=== PATIENT | female | born 1960 | race African-American/Black ===

== ENCOUNTER → 2024-04-26 14:24 | Outpatient (CLI) | payer OTHER, SELFPAY ==
--- NOTE | 2024-05-09 13:52 | DI.NM.S_ITS ---
DATE OF SERVICE: 04/26/2024 NUCLEAR CARDIOLOGY MYOCARDIAL PERFUSION STUDY PROCEDURE: Exercise treadmill stress and rest myocardial perfusion imaging with gating to assess ejection fraction and regional wall motion. ORDERING PROVIDER: Rsosy Vargas PA-C INDICATIONS: The patient is a 63-year-old female with recurrent syncopal episodes. CARDIAC STRESS: The patient was able to exercise for a total of 9 minutes 1 second on a standard Jarod protocol, suggesting excellent exercise capacity, with an SULEIMAN of -37%, achieving 8.9 METS. She had a normal heart rate and blood pressure response to exercise, achieving a maximum heart rate of 158 bpm (101% of her predicted maximum). She had no chest discomfort or anginal symptoms beyond moderate exertional dyspnea. Her resting ECG shows sinus rhythm with fairly normal ST segments. There are no significant ST-segment shifts or arrhythmias with stress. At 7 minutes of exercise, at a heart rate of 152 bpm, 24.8 millicuries of technetium-99m Myoview was injected and she was imaged 15 minutes later using a gated SPECT acquisition protocol. Four days prior while at rest, she had been injected with 27.5 millicuries of technetium-99m Myoview and was scanned 15 minutes later, again using a gated SPECT acquisition protocol. FINDINGS: 1. Raw data: There is fairly good myocardial tracer uptake with only subtle breast shadows noted. The lung/heart ratio is normal at 0.17 with a normal TID ratio 1.00. 2. Quantitated gated SPECT: Post-stress ejection fraction is 76% without any focal wall motion abnormality. Resting ejection fraction is 71% with a normal end-diastolic volume of 65 mL. 3. Myocardial perfusion imaging: Post-stress supine images show a normal myocardial perfusion pattern, supported by normal perfusion imaging in the prone position. The resting images show an identical perfusion pattern without any clear areas of improvement, although some subdiaphragmatic activity overflows into the inferior wall. IMPRESSION: 1. Normal exercise treadmill myocardial perfusion study for ischemia. 2. No evidence of myocardial ischemia or previous myocardial\infarction. 3. Normal left ventricular size and systolic function without focal abnormality. 4. Excellent exercise capacity without angina, ECG evidence of ischemia, or any arrhythmias. She had a normal hemodynamic response to exercise. Randee Meadows - JOSE ENRIQUE/trey/GENNARO doc#: [id number]/job#: [id number] dd: 04/30/2024 16:26:00 dt: 04/30/2024 16:47:00 DICTATING MD/COPIES TO: Leif Reed MD; Rossy Vargas PA-C COPIES MNE: SAI;
== END ==
PROVIDERS: PCP Physician Assistant Medical; Referring Provider Physician Assistant Medical; Visit Provider Physician Assistant Medical
DX: R55 Syncope and collapse; Z13.0 Encounter for screening for diseases of the blood and blood-forming organs and certain disorders involving the immune mechanism; Z13.1 Encounter for screening for diabetes mellitus; Z13.29 Encounter for screening for other suspected endocrine disorder; Z13.6 Encounter for screening for cardiovascular disorders; M54.9 Dorsalgia, unspecified
CPT/HCPCS: 77080; 78452; 80053; 80061; 84443; 85027; 93017; A9502

== ENCOUNTER → 2024-04-26 14:28 | Outpatient (CLI) | payer OTHER, SELFPAY ==
[2024-04-26 16:56] LABS: Hematocrit 38.7 % (36-46); Hemoglobin 12.7 g/dL (12.0-16.0); Mean Corpuscular HGB Conc 32.7 % (30-36); Mean Corpuscular Hemoglobin 28.2 PG (26-34); Mean Corpuscular Volume 86.3 fL (80-100); Platelet Count 263 X10^3/uL (150-400); Red Blood Cell Count 4.49 X10^6/uL (4.0-5.2); Red Cell Distribution Width 14.1 % (11.6-14.8); White Blood Cell Count 7.4 X10^3/uL (4.5-11.0)
[2024-04-26 17:33] LABS: Alanine Aminotransferase 19 IU/L (<35); Albumin 3.9 g/dL (3.5-5.0); Albumin Globulin Ratio 1.2 (1.0-2.8); Alkaline Phosphatase 62 U/L (38-126); Aspartate Aminotransferase 30 IU/L (14-36); BUN Creatinine Ratio 16.3 (6-22); Bilirubin Total 0.5 mg/dL (0.2-1.3); Blood Urea Nitrogen 14 mg/dL (7-17); Calcium 9.2 mg/dL (8.4-10.2); Carbon Dioxide 28 mmol/L (22-32); Chloride 108 mmol/L (98-107); Cholesterol 197 mg/dL (140-199); Estimated Glomerular Filt Rate > 60 mL/min (>60); Globulin 3.2 g/dL (1.7-4.1); Glucose 85 mg/dL (80-110); HDL Cholesterol 60 mg/dL (40-60); HEMOLYSIS < 15 (0-50); LDL Cholesterol Calculated 116 mg/dL (<100); Sodium 137 mmol/L (137-145); Total Protein 7.1 g/dL (6.3-8.2); Triglycerides 107 mg/dL (35-150)
[2024-04-26 18:04] LABS: TSH w/ Reflex to FT4 4.11 uIU/mL (0.47-4.68)
== END ==
PROVIDERS: PCP Physician Assistant Medical; Referring Provider Physician Assistant Medical; Visit Provider Physician Assistant Medical
DX: Z13.0 Encounter for screening for diseases of the blood and blood-forming organs and certain disorders involving the immune mechanism (principal); Z13.1 Encounter for screening for diabetes mellitus; Z13.29 Encounter for screening for other suspected endocrine disorder; Z13.6 Encounter for screening for cardiovascular disorders; M54.9 Dorsalgia, unspecified
CPT/HCPCS: 80053; 80061; 84443; 85027

== ENCOUNTER → 2024-04-30 12:59 | Outpatient (CLI) | payer OTHER, SELFPAY ==
--- NOTE | 2024-04-30 12:15 | DI.RAD.S_ITS ---
PROCEDURE: XR DEXA AXIAL SKELETON INDICATIONS: screen COMPARISON: None. FINDINGS: Lumbar Spine: Bone mineral density 1.265 g/cm2, T score 2.0. Left Hip: Bone mineral density 1.184 g/cm2, T score 2.0. Left Femoral Neck: Bone mineral density 1.103 g/cm2, T score 2.3 Right Hip: Bone mineral density 1.123 g/cm2, T score 1.5. Right Femoral Neck: Bone mineral density 1.016 g/cm2, T score 1.5. Fracture Risk Calculation (when applicable): 10-year fracture risk of a major osteoporotic fracture 5.4 percent and of a hip fracture 0.1 percent. (T score greater or equal to -1.0 to: NORMAL) (T score from -1.1 to -2.4: OSTEOPENIA) (T score less than or equal to -2.5: OSTEOPOROSIS) IMPRESSION: Normal bone density of the lumbar spine, hips, and femoral necks. Follow-up guidelines as follows: Osteoporosis: Consider a repeat DEXA and Vertebral Fracture Assessment (VFA) exam in 2 years or sooner if medically necessary, to reassess this patient's status. Osteopenia: Consider a repeat DEXA in 2-3 years to reassess this patient's status, or if there is a new clinical indication. Normal: Consider a repeat DEXA in 5 years or sooner, or if there is a new clinical indication. All treatment decisions require clinical judgment and consideration of individual patient factors, including patient preferences, comorbidities, previous drug use, risk factors not captured in the FRAX model (e.g., frailty, falls, vitamin D deficiency, increased bone turnover, interval significant decline in bone density ) and possible under- or over-estimation of fracture risk by FRAX. In addition, the NOF Guide recommends that FDA-approved medical therapies be considered in postmenopausal women and men age >= 50 years with a: * Hip or vertebral (clinical or morphometric) fracture * T-score of <=-2.5 at the spine or hip * Ten-year fracture probability by FRAX of >= 3% for hip fracture or >=20% for major osteoporotic fracture. People with diagnosed cases of osteoporosis or at high risk for fracture should have regular bone mineral density tests. For patients eligible for Medicare, routine testing is allowed once every 2 years. The testing frequency can be increased to one year for patients who have rapidly progressing disease, those who are receiving or discontinuing medical therapy to restore bone mass, or have additional risk factors. Dictated by: Mathew Louie M.D. on 04/30/2024 at 16:16 Approved by: Mathew Louie M.D. on 04/30/2024 at 16:18
== END ==
PROVIDERS: PCP Physician Assistant Medical; Referring Provider Physician Assistant Medical; Visit Provider Physician Assistant Medical
DX: Z13.820 Encounter for screening for osteoporosis (principal); Z78.0 Asymptomatic menopausal state
CPT/HCPCS: 77080

== ENCOUNTER → 2024-06-21 13:27 | Outpatient (CLI) | payer OTHER, SELFPAY ==
--- NOTE | 2024-06-21 13:28 | DI.ECHO.S_ITS ---
[facility] : : [address] : : [place] : : [id number] : : Phone: [phone] Echocardiogram Report + + :Name: OLINDA THOMAS Study Date: 06/21/2024 Height: 62 in : :[facility] ReadingLocation: Weight: 151 lb : : Gender: Female BSA: 1.7 m2 : :: 1960 Age: 64 yrs BP: 101/74 mmHg: :Reason For Study: FAINTING SPELLS : :Ordering Physician: NIMISHA, : :CHLOE Performed By: Eleanor Hernandez : :Referring: CHLOE BANSAL : + + Interpretation Summary 1. The left ventricular contractility is normal. Estimate ejection fraction is greater than 65% with no segmental wall motion abnormalities. No LVH. Unable to comment on diastolic function. No evidence of outflow tract obstruction. 2. The right ventricular contractility is normal. 3. All cardiac chambers appears to be grossly normal. 4. Trace to mild aortic insufficiency. 5. The intra-atrial septum is hypermobile. There is a intra-atrial shunt noted on Doppler evaluation as well as with an agitated saline contrast study suggesting the presence of a patent foramen ovale. 6. No obvious intracardiac masses nor thrombi. 7. No hemodynamically significant pericardial effusion. 8. Low right-sided filling pressures. Conclusion: Normal biventricular systolic function with no significant valvular abnormalities. Patent foramen ovale present. Procedure: Images were not obtained from all of the standard acoustic windows due to the limited scope of the study. The study quality was technically good. There is no prior echocardiogram noted for this patient. A saline contrast injection was performed to assess for cardiac shunting. The injection was performed through an intravenous line in the right arm. The patient was in sinus rhythm with heart rates between 68-80 bpm during the exam. Left Ventricle: The left ventricle is normal in size and wall thickness. The ejection fraction is estimated to be 60-65%. Atria: The atrial septum is aneurysmal. Injection of contrast with valsalva documented an interatrial shunt. Aortic Valve: The aortic valve is trileaflet. There is no aortic valve stenosis. There is mild aortic regurgitation. Tricuspid Valve: There is a trace or physiologic amount of tricuspid regurgitation. Pulmonary artery pressures cannot be estimated because of the lack of a measurable TR jet velocity. Great Vessels: The IVC is of normal diameter and collapses greater than 50% with a sniff. This suggests a low right atrial pressure of 3 mm Hg. Pericardium/ Pleura There is no pericardial effusion. There is no pleural effusion. MMode/2D Measurements & Calculations LVIDd: 4.3 cm LVOT diam: 2.0 cm LVIDs: 2.6 cm FS: 40.4 % IVSd: 0.82 cm LVPWd: 0.82 cm LV garvey. diameter/BSA (cm/m^2): 2.5 LV sys. diameter/BSA (cm/m^2): 1.5 IVC diam: 1.4 cm Doppler Measurements & Calculations Ao V2 max: 179.7 cm/sec LVOT Max Sam: 108.0 cm/sec Ao V2 mean: 122.6 cm/sec LV V1 max P.7 mmHg Ao max P.9 mmHg LV V1 VTI: 22.4 cm Ao mean P.8 mmHg ONELIA(I,D): 2.2 cm2 Ao V2 VTI: 32.6 cm ONELIA(V,D): 2.0 cm2 sev ratio: 0.69 ONELIA indexed to BSA (cm^2/m^2): 1.3 SV(LVOT): 73.3 ml Reading Physician:LONI
== END ==
PROVIDERS: PCP Physician Assistant Medical; Referring Provider Physician Assistant Medical; Visit Provider Physician Assistant Medical
DX: R55 Syncope and collapse (principal); I35.1 Nonrheumatic aortic (valve) insufficiency
CPT/HCPCS: 93307

== ENCOUNTER → 2025-02-25 11:41 | Outpatient (CLI) | payer OTHER, SELFPAY ==
--- NOTE | 2025-02-25 11:42 | DI.MRI.S_ITS ---
PROCEDURE: MR HIP LT WO CON
== END ==
LOC: MRI 11:41
PROVIDERS: PCP Family Medicine; Referring Provider Physician Assistant Medical; Visit Provider Physician Assistant Medical
DX: M16.0 Bilateral primary osteoarthritis of hip (principal); S79.912S Unspecified injury of left hip, sequela; M94.252 Chondromalacia, left hip; M67.952 Unspecified disorder of synovium and tendon, left thigh
CPT/HCPCS: 73721